=== PATIENT | female | born 1950 | race Caucasian/White ===

== ENCOUNTER 2021-06-20 08:05 | Day surgery (SDC) | payer OTHER ==
[~2021-06-20] VITALS: Ht 165.1 cm; Wt 132.9 kg
[~2021-06-20 08:05] MED LIST: ALBUTEROL NEB; ALBUTEROL2.5 MG/31 IN; AMBIEN 10 MG TA10 MG PO; AMBIEN5 MG PO; AMITRIPTYLINE H50 M2 PO; AMITRIPTYLINE100 MG PO; ANALGESIC325 MG PO; ASPIRIN325 PO; B-100 COMPLEX1 EAC1; BENTYL 10 MG CA10 M1 PO; BUSPAR15 MG PO; BUSPIRONE HCL10 MG PO; BUSPIRONE PO; CALCIUM CIT-VI1 EAC1; CECLOR500 MG PO; CEFACLOR ER500 MG PO; CELEBREX 200 M200 MG PO; CLEOCIN HCL150 MG PO; COMPAZINE5 MG PO; CYCLOBENZAPRINE10 MG PO; CYCLOBENZAPRINE5 MG PO; CYMBALTA60 MG PO; CYTOMEL50 MCG PO; DAZIDOX20 MG PO; DETROL LA2 MG PO; DOXYCYCLINE 10100 MG PO; ENOXAPARIN40 MG/0.4 SQ; FLONASE 0.05%50 MCG NS; FLOVENT HFA 2220 MC1 IH; FLOVENT HFA 2220 MC1 INH; FOLIC ACID1 MG PO; GABAPENTIN600 MG PO; HYDROCODONE-AP1 EACH PO; HYDROXYCHLOROQ200 M1 PO; IBUPROFEN 800800 M1 PO; IBUPROFEN 800800 MG PO; LIDODERM 5%1 PATC1 TOP; LIPITOR40 MG PO; LORTAB 5 MG/5001 TA1 PO; MECLIZINE 25 MG25 M1 PO; MECLIZINE HCL25 MG PO; MEDROLDOSEPACK PO; METHOTREXATE 22.5 MG PO; NASONEX; NASONEX17 GM NASAL; NEURONTIN600 MG PO; NEXIUM 40 MG CA40 M1 PO; NEXIUM PO; NEXIUM40 MG PO; NORCO 5-325 TA1 EACH; NORCO 5-325 TA1 EACH PO; OXECTA5 MG PO; OXYCODONE HCL5 M1 PO; OXYCONTIN20 M1 PO; PEPCID AC20 M1 PO; PERCOCET 5-3251 EACH PO; PHENERGAN 25 MG25 M1 PO; PREDNISONE 10 M10 M1 PO; PREDNISONE 20 M20 M1 PO; PREDNISONE 5 MG5 M1 PO; PREDNISONE50 MG PO; PROAIR HFA8.5 GM INH; PROVENTIL HFA6.7 G1 INH; PROVENTIL IH; RECLAST 55 MG/100 M; SINGULAIR 10 MG10 M1 PO; TESSALON PERLE100 MG PO; TRIAMCINOLONE A80 G2 TOP; VALIUM2 MG PO; VALIUM5 MG PO; VITAMIN D 5050000 I1 PO; ZAROXOLYN 2.5M2.5 M1 PO; ZOFRAN ODT4 MG PO; [UNRECOGNIZED DRUG - OTHER] PO; [UNRECOGNIZED DRUG - OTHER] PO; [UNRECOGNIZED DRUG - OTHER] PO; [UNRECOGNIZED DRUG - REMARK]
[2021-06-20 09:49] VITALS: BP 102/39
[2021-06-20 10:22] LABS: HEMATOCRIT 26.7 % (37.0-47.0); HEMOGLOBIN 8.2 gm/dL (12.0-15.0); MCH 24.8 pg (26.0-34.0); MCHC 30.8 g/dL (28.0-37.0); MCV 80.3 fL (80.0-100.0); RBC 3.33 mil/uL (4.20-5.00); RDW 22.1 % (10.5-14.5); WBC 4.6 thou/uL (4.0-11.0)
[2021-06-20 10:43] LABS: ALBUMIN 2.3 g/dL (3.4-5.0); CALCIUM 8.2 mg/dL (8.5-10.1); CREATININE 1.4 mg/dL (0.6-1.0); POTASSIUM 4.1 mmol/L (3.5-5.1); TOTAL BILIRUBIN 1.6 mg/dL (0.2-1.0); TOTAL PROTEIN 6.4 g/dL (6.4-8.2)
[2021-06-20 10:51] LABS: INR 1.14; PROTIME 12.3 Seconds (10.5-12.1)
[2021-06-20 12:22] VITALS: BP 102/39
--- NOTE | 2021-06-23 17:50 | O ---
[facility] [place] [address] OPERATIVE REPORT Name: FEDERICO MILLER Room #: DEP [facility].#: [id number] Admission: 06/20/21 Attend Phys: Arnulfo Lam MD Discharge: 06/20/21 Date of : 54 Report #: [id number] THIS REPORT FOR: cc: Chris Dietz MD, Mark S. MD Chu, Peter Y. MD ~ cc: Chris Dietz MD DATE OF SERVICE: 06/20/2021 PREOPERATIVE DIAGNOSIS: Mixed connective tissue disorder. No IV access. Patient with frequent hospitalization and needing IV access. POSTOPERATIVE DIAGNOSIS: Mixed connective tissue disorder. No IV access. Patient with frequent hospitalization and needing IV access. PROCEDURE PERFORMED: Right subclavian Port-A-Cath placement. COMPLICATIONS: None. ESTIMATED BLOOD LOSS: 5 mL. SURGEON: Arnulfo Lam MD. ANESTHESIA: General anesthesia. PROCEDURE NOTE: With the patient under general anesthesia, the right chest and neck was prepped and draped in sterile fashion. The patient received preoperative IV antibiotics. Timeout was performed. A 0.25% Marcaine was used to anesthetize the skin. Approximately 3 cm incision was made infraumbilically. The patient is obese and the port is placed slightly medial under the incision to keep it out of the fat, to keep it out of the lateral axilla fat and the breast fat. The breast was taped down carefully with the protective film, so it would not be riding up as high. The skin incision was carried down through subcutaneous tissue. Cautery used for hemostasis. The pectoralis fascia was identified. A space was created above the pectoralis fascia inferiorly. Pocket is well-formed and the port sat in the pocket well. During the procedure doing this part, the patient was raised slightly with the head up and then she was tilted, she was placed in the Trendelenburg position. The subclavian vein was accessed without difficulty using Seldinger technique. It was found on the first pass. Good blood return. Wire was threaded through the needle easily. Needle was removed. The wire was in the good position going downward to the superior vena cava. The catheter was then fitted to the port. The patient was then flattened out or even raised with her head back up again. The catheter was fitted to the port. I measured about 20 cm. The catheter was fitted to the port using special locking plastic device. The port and the catheter was [facility] [address] [place] [address] OPERATIVE REPORT Name: FEDERICO MILLERN Room #: DEP [facility]..#: [id number] Admission: 06/20/21 Attend Phys: Arnulfo Lam MD Discharge: 06/20/21 Date of : 54 Report #: [id number] flushed with heparinized saline. A dilator was then placed over the wire. After dilating the tract, a Peel Apart sheath was placed over the dilator. Both were placed over the wire and it went in easily. Dilator and wire were removed. The catheter was then inserted into the Peel Apart sheath. The sheath was peeled apart without difficulty. Catheter was maintained in that position. The port was then placed into the pocket. The port and catheter was not kinked. It seated well. The two 2-0 Prolene sutures were used to hold the port down at the 2 upper edge sides. Antibiotic was used to flush the subcutaneous pocket. Subcutaneous tissue was closed with 3-0 PDS. Skin was closed with 5-0 PDS running subcuticular fashion. Dermabond was applied. Because of the findings this patient had, it was somewhat hard to feel the port and eventually I found it a little bit more inferior to what I thought it was. The Rodrigues needle was placed in the port and I got good blood return and the heparinized saline solution was then used to flush through the port and the catheter, approximately 5 mL of the heparinized solution was placed. The needle was then removed. The patient tolerated the procedure well and was taken to recovery room. <ELECTRONICALLY SIGNED> By: Arnulfo Lam MD 06/23/[id number] 17 35 Arnulfo Lam MD /[email or web address]
== END 2021-06-20 12:22 | disposition home or self-care (01) ==
LOC: EDBD 08:05 → TBA 08:05 → OR 08:05 → TBA 08:10 → OR 09:42
PROVIDERS: Anesthesiology; ATTEND Surgery
DX: Z45.2 Encounter for adjustment and management of vascular access device (principal); M35.9 Systemic involvement of connective tissue, unspecified; Z98.890 Other specified postprocedural states; Z79.899 Other long term (current) drug therapy; Z20.822 Contact with and (suspected) exposure to COVID-19; Z88.2 Allergy status to sulfonamides; Z88.8 Allergy status to other drugs, medicaments and biological substances; Z91.040 Latex allergy status
CPT/HCPCS: 50010; 50101; 50386; 50403; 51938; 56524; 56525; 58637; 62110; 62900; 70005